=== PATIENT | male | born 1970 | race Caucasian/White ===

== ENCOUNTER 2017-02-28 10:26 | Inpatient (IN) | payer BC, OTHER ==
[~2017-02-28] VITALS: Ht 185.4 cm; Wt 116.1 kg
--- NOTE | ~2017-02-28 | EKG ---
[place] [address] [facility] [place] [address] ELECTROCARDIOGRAM REPORT Name: YULI MCMANUS Room #: 418-P ADM IN M.R.#: [id number] Admission: 02/28/17 Attend Phys: Christiano Valentin MD Discharge: Date of : 72 Report #: [id number] THIS REPORT FOR: //name// [facility] ED Test Date: 2017-02-28 Test Time: 10:26:04 Pat Name: YULI MCMANUS Department: Room: [facility] Gender: M Jewelry Repairer: KIRT : 1970 Requested By: Sesar Vo Order Number: [id number] MD: Scooby Tesfaye Measurements Intervals [place] Rate: 85 P: 19 NH: 156 QRS: 46 QRSD: 108 T: 25 QT: 377 QTc: 449 Interpretive Statements Sinus rhythm Normal tracing Baseline wander in lead(s) V5 No previous ECG available for comparison Electronically Signed On 03-01-2017 8:56:29 CDT by Scooby Tesfaye [email or web address] <ELECTRONICALLY SIGNED> By: Scooby Tesfaye MD, [facility] 03/01/17 0856 1026 1026 Scooby Tesfaye MD, FACC /EPI
--- NOTE | ~2017-02-28 | EXE ---
[facility] [employer] [place] [address] STRESS ECHOCARDIOGRAM Name: YULI MCMANUS Room #: 418-P ADM IN M.R.#: [id number] Admission: 02/28/17 Attend Phys: Audrey Munson Discharge: Date of : 72 Date of Service: 03/01/17 1017 Report #: [id number] THIS REPORT FOR: //name// APPROVED REPORT Exam: Stress Echocardiogram Indication: Chest pain Patient Location: Echo lab Stress Nurse: Candie Fowler RN Room #: 418 Status: routine Ht: 6 ft 0 in HR: 93 bpm BP: 134/88 mmHg Medical History Medical History: HTN, Hyperlipidemia Cardiac Risk Factors: HTN, Hyperlipidemia, FHX of CAD Procedure The patient underwent an Exercise Stress Test using the Herminio Protocol. Blood pressure, heart rate, and EKG were monitored. An Echocardiogram was performed by desktop support technician in four stages in quad fashion. At peak stress, four selected images were obtained and placed side by side with resting images for comparison. Stress Test Details Stress Test: Exercise stress testing was performed using a Herminio protocol. HR Resting HR: 93 bpm Max Heart Rate (APMHR): 175 bpm Max HR Achieved: 171 bpm Target HR (85% APMHR): 148 bpm % of APMHR: 97 Recovery HR: 125 bpm HR response to stress: Normal HR response to stress BP Resting BP: 134/88 mmHg Max BP: 198/104 mmHg Recovery BP: 142/94 mmHg ECG Resting ECG: Sinus Rhythm Stress ECG: Sinus Rhythm, nonspecific ST-T abnormalities ST Change: Non-ischemic [facility] [address] [place] [address] STRESS ECHOCARDIOGRAM Name: YULI MCMANUS Room #: 418-P ADM IN M.R.#: [id number] Admission: 02/28/17 Attend Phys: Audrey Munson Discharge: Date of : 72 Date of Service: 03/01/17 1017 Report #: [id number] Clinical Reason for Termination: Maximal effort Exercise duration: 11 min 26 sec Highest Stage Achieved: Stage 4: 4.2 mph at 16% grade. Exercise capacity: 13.7 METs Overall Exercise Capacity for Age: Good Pre-Stress Echo The resting Echocardiogram showed normal left ventricular contractility with an estimated Ejection Fraction of about 55%. Normal wall motion in all segments on baseline images. Post-Stress Echo The stress Echocardiogram showed normal left ventricular contractility with an estimated Ejection Fraction of about 70%. Normal augmentation of wall motion in all segments on post stress images. Clinical Normal augmentation of myocardial wall segments using a 17 segment model. Conclusion Clinical Response: Non-ischemic Exercise Capacity: Above average Stress ECG Response: Non-ischemic Stress Echo Images: Non-ischemic No clinical, EKG or echocardiographic evidence for ischemia. Other Information Study Quality: Good <Conclusion> No clinical, EKG or echocardiographic evidence for ischemia. <ELECTRONICALLY SIGNED> By: Tereso Jose MD 03/01/17 1017 1017 1017 Tereso Jose MD /INF
[2017-02-28 10:28] VITALS: BP 179/119
[2017-02-28 10:54] LABS: ABSOLUTE NEUTROPHILS 4.1 thou/uL (1.4-8.2); EOSINOPHILS 3.1 % (0.0-3.0); HEMATOCRIT 48.6 % (42.0-52.0); HEMOGLOBIN 16.9 gm/dL (14.0-18.0); LYMPHOCYTES 28.8 % (24.0-44.0); MCH 29.4 pg (26.0-34.0); MCHC 34.7 g/dL (28.0-37.0); MCV 84.5 fL (80.0-100.0); MONOCYTES 10.9 % (1.0-8.0); PLATELET COUNT 252 thou/uL (150-400); POLYS 56.2 % (36.0-66.0); RBC 5.75 mil/uL (4.50-6.00); RDW 13.5 % (10.5-14.5); WBC 7.4 thou/uL (4.0-11.0)
[2017-02-28 10:55] LABS: MANUAL DIFF NO
[2017-02-28 11:04] LABS: ANION GAP 10 mmol/L (7-16); BUN 18 mg/dL (7-18); CALCIUM 9.5 mg/dL (8.5-10.1); CHLORIDE 102 mmol/L (98-107); CO2 28 mmol/L (21-32); GLUCOSE 111 mg/dL (74-106); POTASSIUM 3.6 mmol/L (3.5-5.1); SODIUM 140 mmol/L (136-145)
[2017-02-28 11:17] LABS: ALBUMIN 4.2 g/dL (3.4-5.0); ALKALINE PHOSPHATASE 100 U/L (46-116); DIRECT BILIRUBIN < 0.1 mg/dL (<0.1-0.3); NT-PRO BRAIN NAT PEPTIDE 12 pg/mL (<300); SGOT 33 U/L (15-37); SGPT 70 U/L (30-65); TOTAL BILIRUBIN 0.6 mg/dL (<0.1-1.0); TROPONIN-I < 0.04 ng/mL (<0.04-0.07)
[2017-02-28] MEDS ORDERED: LISINOPRIL-HCT1 EAC1 PO (11:42)
[2017-02-28] MEDS ORDERED: FLONASE 0.05%50 MCG NASAL (11:42)
[2017-02-28 12:07] VITALS: BP 133/84
[2017-02-28 12:30] VITALS: BP 133/84
[2017-02-28 13:27] VITALS: BP 135/92
[2017-02-28 15:59] VITALS: BP 133/90
[2017-02-28 21:10] VITALS: BP 129/89
[2017-03-01 03:17] VITALS: BP 100/60
[2017-03-01 06:45] LABS: CHOLESTEROL 152 mg/dL (<200); HDL CHOLESTEROL 35 mg/dL (>40); LDL CHOLESTEROL 99 mg/dL (<100); TC:HDL 4.3 Ratio (Not establshd); TRIGLYCERIDE 93 mg/dL (<150); VLDL 19 mg/dL (<40)
[2017-03-01] MEDS ORDERED: LIPITOR40 MG PO (09:49)
[2017-03-01] MEDS ORDERED: PROTONIX40 M1 PO ×2 (09:49→09:50)
[2017-03-01 11:05] VITALS: BP 100/60
== END 2017-03-01 11:38 | disposition home or self-care (01) | DRG 313 ==
LOC: ER 10:26 → EROBS 11:43 → 4E 12:35
PROVIDERS: Nurse Practitioner; Physician Assistant
DX: R07.9 Chest pain, unspecified (principal); I10 Essential (primary) hypertension; E78.00 Pure hypercholesterolemia, unspecified; J45.909 Unspecified asthma, uncomplicated; E78.5 Hyperlipidemia, unspecified; Z82.49 Family history of ischemic heart disease and other diseases of the circulatory system
CPT/HCPCS: 10183

== ENCOUNTER → 2017-03-05 | Outpatient (CLI) | payer BC, OTHER ==
[~2017-03-05] MED LIST: FLONASE 0.05%50 MCG NASAL; LIPITOR40 MG PO; LISINOPRIL-HCT1 EAC1 PO; PROTONIX40 M1 PO
== END ==
LOC: CAT 10:19
DX: Z13.6 Encounter for screening for cardiovascular disorders (principal)